=== PATIENT | female | born 1945 | race Caucasian/White ===

== ENCOUNTER 2022-05-08 11:15 | Outpatient (RCR) | payer MEDICARE, BC, SELFPAY | END 2022-07-15 12:28 | disposition home or self-care (01) | PROVIDERS: Visit Provider Physical Medicine & Rehabilitation | DX: R26.9 Unspecified abnormalities of gait and mobility (principal); Z51.89 Encounter for other specified aftercare | CPT/HCPCS: 97110; 97161 ==

== ENCOUNTER 2023-05-29 10:45 | Outpatient (RCR) | payer MEDICARE, BC, SELFPAY ==
--- NOTE | 2023-04-18 15:49 | PT.OPEX ---
PT [facility] [place] [facility] PT [facility] Eval Start: 04/18/23 13:32 Freq: Status: Active Protocol: Document 04/18/23 14:17 SHANTA (Rec: 04/18/23 15:45 SHANTA [id number]) E-signed By Dwayne Serrano PT Physical Therapy Outpatient Evaluation Insurance Information Insurance Name Medicare B,Blue Cross/Blue [employer] Medical Diagnosis Left hip bursitis Treating Diagnosis Left gluteal weakness Referring MD Ash Subjective Subjective Pt. reports onset of right lateral hip pain about 6 weeks ago without any noted injury. She had similar symptoms treated in therapy a decade or so ago. She has been having difficulty walking, lifting left leg, and sleeping at night. She saw Orthopedic surgeon and had X-rays. He thought that she had hip bursitis and recommended a cane for ambulation along with therapy. PMH includes; HTN, arthritis, chronic neck pain, and right shoulder RTSA. Pain Comments 6 Date of Last Physician Visit 04/14/23 Current Work Status Retired Preferred Name Diamond Objective Range of Motion Left hip: ER 40 degrees; IR 15 degrees; flexion 110 degrees Strength Left hip: abduction 2+/5 with pain; Palpation Pain with palpation to left lateral hip, with pain and hypertonus of left gluteus medius and piriformis Balance & Gait Pt. ambulates with moderate limp on left without assistive device. She ambultates with minimal limp on left side when using a cane. Assessment Assessment/Impression Objectively, pt. demonstrates; moderate limp on left side during ambulation without assistive device due to pain and gluteal medius weakness; functional bilat. hip ROM with 40 degrees of ER and 15 degrees of IR on left; pain with palpation to left lateral hip and gluteus medius; moderate weakness of left hip abductors and mild general gluteal weakness throughout; negative left hip joint testing for pain provocation; and general core deconditioning. She would benefit from skilled therapy working on progressive gluteal flexibility and strengthening activities. Primary Functional Limitations walking, lying on left side; lifting left leg; abducting left leg; sleeping; up steps Plan of Care Rehabilitation Potential Excellent Physical Therapy Goals 1. Pt. will be independent with HEP for self maintenance in 8 weeks. 2. Pt. will demonstrate improved left hip mobility and gluteal/core strength in 8 weeks. 3. Pt. will be able to walk without cane and sleep without pain in 8 weeks. Coordination/Communication With Referral Source Treatment Plan/Direct Interventions Joint Mobilization,Manual Therapy,Self-Care/Home Management,Therapeutic Exercises Frequency/Duration Weekly for 8 weeks. Patient Will Be Discharged From Therapy Independent w/HEP, Independently Progressing Evaluation Billing Complexity Low Certification Information Initial Certification Date 04/18/23 Ending Certification Date 07/12/23 Provider Signature Shows Agreement With POC & Medical Necessity Physician Signature & Date Requested Please Sign/Date Here Physician Comment/Change : Physician NPI Number #
== END 2023-07-11 08:46 | disposition home or self-care (01) ==
PROVIDERS: PCP Student in an Organized Health Care Education/Training Program; Visit Provider Orthopaedic Surgery
DX: M70.72 Other bursitis of hip, left hip (principal); M25.552 Pain in left hip; M62.81 Muscle weakness (generalized); Z51.89 Encounter for other specified aftercare
CPT/HCPCS: 97110; 97140; 97161

== ENCOUNTER 2023-06-02 15:13 | Emergency (ER) | payer MEDICARE, BC, SELFPAY ==
[2023-06-02 15:36] VITALS: BP 163/82; PULSE 98; RESP 16; TEMP 37; O2SAT 96; BMI 34.4
--- NOTE | 2023-06-02 16:06 | ED_ITS ---
HPI - General Adult General Time Seen by Provider: 16:06 Date Seen: 06/02/23 Chief complaint: Extremity Pain/Injury, Lower Stated complaint: L foot / back pain Time Seen by Provider: 06/02/23 15:44 Source: patient, family and RN notes reviewed Mode of arrival: wheelchair Limitations: no limitations History of Present Illness HPI narrative: This 77-year-old female is coming in with complaints of left foot pain and swelling. It awoke her around 2:30 a.m. last night. She tried some tramadol last night. She has tramadol and Flexeril for chronic neck pain. It did not help. A while ago she took some Excedrin. She states she has not eaten anything today. She can walk on the ball of the foot but cannot bear weight down into the midfoot or toes without excruciating pain. There has been no trauma. She has had no fevers or chills. She has been working with physical therapy for weeks now on left hip and groin pain, thought to be left hip bursitis. They relate to me if it was not improving in this time frame that they were to be getting an MRI. I did review with them at this point that we will not be able to get emergent MRI of her hip, that is something that is going to need to be followed up outpatient and is not in the acute need of her visit today. I tried to be very nice in explaining this but that we do not have a prior authorization process here and this is not her emergent need today. She does state last night she is getting some sharp low back pain. When we were talking about her left foot and no trauma, did recommend that we still consider x-rays, we occasionally can see some changes on the x-rays that leave this to diagnosis and there is always the possibility of a nontraumatic fracture. Patient brought up that if she was going to get x-ray she really thought it should be her low back. Given that she did have some acute pain last night, I did agree to do low back x-rays. Her primary complaint for being seen is left foot pain and swelling. She states she had an issue of the left foot being swollen at [place] time, was not here and was not evaluated. They note she was in a wheelchair for about 3 days unable to bear weight. He does not carry a history pre of gout or pseudogout. She does have known underlying arthritis. Her medications are reviewed, I do see hydrochlorothiazide in the list. She has not had any history of DVT, no current respiratory symptoms. They note that she has had a stent placed in the artery in the left groin. Related Data Home Medications ?Medication ?Instructions ?Recorded ?Confirmed cyclobenzaprine 10 mg tablet 10 mg PO TID 01/30/23 12/15/23 hydrochlorothiazide 50 mg tablet 50 mg PO Q OTHER DAY 01/30/23 12/15/23 omeprazole 20 mg capsule,delayed 20 mg PO QDAY 01/30/23 12/15/23 release tramadol 50 mg tablet 50 mg PO QDAY 01/30/23 12/15/23 atorvastatin 40 mg tablet 40 mg PO DAILY 04/14/23 12/15/23 estradiol 0.01% (0.1 mg/gram) 1 g vaginal 04/14/23 12/15/23 vaginal cream levothyroxine 150 mcg tablet 150 mcg PO DAILY 04/14/23 12/15/23 losartan 50 mg tablet 50 mg PO BID 04/14/23 12/15/23 allopurinol 100 mg tablet 50 mg PO .QOD gout 06/18/23 12/15/23 carvedilol 25 mg tablet 25 mg PO BID 07/30/23 12/15/23 amlodipine 5 mg tablet 5 mg PO QDAY 10/15/23 12/15/23 oxycodone 5 mg tablet 5 mg PO Q6H PRN 12/15/23 12/15/23 Allergies Allergy/AdvReac Type Severity Reaction Status Date / Time cinnamon Allergy Unknown Verified 12/15/23 12:06 house dust Allergy Verified 12/15/23 12:06 Latex, Natural Rubber Allergy Verified 12/15/23 12:06 lisinopril Allergy Cough Verified 12/15/23 12:06 Penicillins Allergy Verified 12/15/23 12:06 titanium AdvReac infection Verified 12/15/23 12:06 Review of Systems Status of ROS: Reports: 6 or more systems reviewed and unremarkable except as noted in History and below [facility] Medical History GERD (gastroesophageal reflux disease) ?K21.9 - Gastro-esophageal reflux disease without esophagitis (ICD-10) IBS (irritable bowel syndrome) ?K58.9 - Irritable bowel syndrome without diarrhea (ICD-10) Hypertension ?I10 - Essential (primary) hypertension (ICD-10) CAD (coronary artery disease) ?I25.10 - Atherosclerotic heart disease of [place] coronary artery without angina pectoris (ICD-10) Surgical History Status post hip surgery (06/26/23) ?Z98.890 - Other specified postprocedural states (ICD-10) H/O cataract extraction ?Z98.49 - Cataract extraction status, unspecified eye (ICD-10) History of reverse total replacement of right shoulder joint (~2017) ?Z98.890 - Other specified postprocedural states (ICD-10) History of removal of retained hardware (1991) ?Z98.890 - Other specified postprocedural states (ICD-10) History of open reduction and internal fixation (ORIF) procedure (1987) ?Z98.890 - Other specified postprocedural states (ICD-10) History of hysterectomy ?Z90.710 - Acquired absence of both cervix and uterus (ICD-10) Hx of cholecystectomy ?Z90.49 - Acquired absence of other specified parts of digestive tract (ICD- 10) Hx of appendectomy ?Z90.49 - Acquired absence of other specified parts of digestive tract (ICD- 10) Family History Mother DVT (deep venous thrombosis) Social History Smoking Status: Former smoker What tobacco products do you use: cigarettes Smoking quit date/years: >15 years ago Do you use any of these nicotine containing products: None Second hand tobacco smoke exposure: No How often do you have a drink containing alcohol: never How often do you have six or more drinks on one occasion: Never AUDIT-C Alcohol total score: 0 Non-prescribed substance use: denies use service: No Exam Const: Vital Signs, click to edit/add: Vital Signs - 24 hr 06/02/23 15:36 06/02/23 17:45 06/02/23 18:29 Temperature 98.6 F Pulse Rate [Pulse Oximeter] 98 82 Respiratory Rate 16 18 Blood Pressure [Ri ght Upper Arm] 163/82 H 148/81 H Pulse Oximetry 96 97 Oxygen Delivery Me thod Room Air Room Air Very pleasant 77-year-old female lying in the bed in exam room to, 2 daughters are present. She is alert, interactive, no apparent distress. Sclera clear, conjugate gaze, able to speak in complete sentences. Is able to sit up, lungs are clear, good air entry, no increased work of breathing. CV regular rate and rhythm, no murmur, normal S1 and S2. Abdomen is soft, no rebound or guarding, no organomegaly. The left foot definitely is swollen, see edema over the dorsum of the foot. There is a little bit more warmth to it than the right but no significant erythema. She is tender when I palpate inferiorly in the soft tissue below the lateral malleolus, medial side is completely nontender. Ankle mortise is nontender. She can not planes of pain when I get down over the dorsum of the foot by the metatarsophalangeal joints. There is general pain over these. The edema seems to be more so distally in the foot. She has good pulses, normal cap refill. In comparison her right foot actually feels cooler than the left. She has normal sensation of both. Documenting provider has reviewed patient's vital signs: yes Course Course ED Course: We will certainly consider thromboembolic disease, will get an ultrasound of this left lower extremity to rule out DVT. Have reviewed with them that I am not concerned about arterial occlusion at all with her presentation. This was actually warmer than the right. I do think that inflammatory arthropathy such as gout and pseudogout need to be considered. This coupled with a history what happened at [place] does make me think of an inflammatory arthropathy. I see no evidence of infectious etiology here. We will get a full complement of labs. She was stating she was having sharp back pain and is requesting a back x-ray, I will order lumbar films for her. She states she has not had any imaging done. Reviewed with her that I do not think the foot swelling has anything to do with back issues or the hip issues that she has been having but will keep this in consideration. Again, have reviewed the rationale for why we cannot do MRI of her left hip here today. Reevaluation(s) Time of Reevaluation #1: 17:53 Reevaluation #1: Patient requesting something further for pain management. Per nursing, they did question whether she has tolerated oxycodone/Percocet. It sounds as if she has in the past. Ordered a 1000 mg of acetaminophen and 5 mg oral oxycodone. Awaiting labs and imaging results at this time. Time of Reevaluation #2: 19:46 Reevaluation #2: Have reviewed with patient and her daughters the degenerative changes of her lumbar spine. The x-ray of her foot and ankle are normal, no DVT an ultrasound. On her labs, did review the creatinine of 1.2 with the creatinine clearance of just over 30 as they had asked about that. We did review that she has diminished creatinine clearance which would not be unexpected at age 77. There is nothing to do with this tonight, no acute changes or concerns with this. Her uric acid is normal but does not effectively rule out gout. I think her foot does suggest a inflammatory process. Oxycodone did help. We also gave her some Tylenol. We discussed having some oxycodone to help her sleep at night, Tylenol scheduled and then she can use her tramadol during the day. We will initiate some low-dose prednisone as an anti-inflammatory. We did discuss the mildly low potassium, daughters note that is been low before. Will have her try increasing potassium through dietary methods, follow up in clinic within the next 1-2 weeks for recheck. Reviewed signs and symptoms for return of this foot or other concerns. Will give medications from [facility], 8 tablets of oxycodone will be provided and prednisone. Vital Signs Vital signs: Initial Vital Signs Temperature 98.6 F 06/02/23 15:36 Temperature Source Oral 06/02/23 15:36 Pulse Rate 98 06/02/23 15:36 Pulse Rhythm Regular 06/02/23 15:36 Pulse Strength 3+ Normal 06/02/23 15:36 Respiratory Rate 16 06/02/23 15:36 Blood Pressure 163/82 H 06/02/23 15:36 Blood Pressure Mean 109 H 06/02/23 15:36 Blood Pressure Position Sitting 06/02/23 15:36 Pulse Oximetry 96 06/02/23 15:36 Oxygen Delivery Method Room Air 06/02/23 15:36 Vital Signs Temperature 98.6 F 06/02/23 15:36 Pulse Rate 98 06/02/23 15:36 Respiratory Rate 16 06/02/23 15:36 Blood Pressure 163/82 H 06/02/23 15:36 Pulse Oximetry 96 06/02/23 15:36 Oxygen Delivery Method Room Air 06/02/23 15:36 Temperature 98.6 F 06/02/23 15:36 Pulse Rate 81 06/02/23 20:17 Respiratory Rate 18 06/02/23 20:17 Blood Pressure 146/87 H 06/02/23 20:17 Pulse Oximetry 95 06/02/23 20:17 Oxygen Delivery Method Room Air 06/02/23 20:17 Medical Decision Making Lab Data Lab results reviewed: Yes I reviewed the patient's lab results Labs: Lab Results 06/02/23 Range/Units 16:36 WBC 9.15 (4.50-11.00) K/uL RBC 3.70 L (4.00-5.20) m/uL Hgb 11.3 L (12.0-16.0) gm/dL Hct 33.7 (33.0-51.0) % MCV 91 (80-100) fL MCH 31 (26-34) pg MCHC 34 (32-36) gm/dL RDW Coeff of Liliana 12.5 (11.5-15.5) % Plt Count 153 (140-440) K/uL Neut % (Auto) 72.6 H (42.0-72.0) % Lymph % (Auto) 16.3 L (20-44) % Montgomery % (Auto) 10.5 (0.0-11.0) % Eos % (Auto) 0.2 (0.0-7.0) % Baso % (Auto) 0.2 (0.0-3.0) % Neut # (Auto) 6.60 (1.7-7.0) K/uL Lymph # (Auto) 1.50 (0.90-2.90) K/uL Montgomery # (Auto) 1.00 H (0.00-0.90) K/UL Eos # (Auto) 0.02 (0.00-0.50) K/uL Baso # (Auto) 0.02 (0.00-0.30) K/uL Abs Immat Gran (auto) 0.02 (0.00-0.30) K/uL Imm/Tot Granulo (auto) 0.2 % ESR 23 H (2-20) mm/hr D-Dimer Quant (PE/DVT) 0.94 H (0.00-0.50) ug/ml Sodium 138 (135-149) mmol/L Potassium 3.1 L (3.6-5.1) mmol/L Chloride 99 (96-114) mmol/L Carbon Dioxide 30 (20-32) mmol/L Anion Gap 9 (7-15) mEq/L BUN 20 (7-30) mg/dL Creatinine 1.2 (0.5-1.5) mg/dL Estimated Creat Clear 31.45 Estimated GFR 46 ml/min Glucose 104 (60-115) mg/dL Uric Acid 7.2 (2.2-8.4) mg/dL Calcium 8.5 (8.4-10.6) mg/dL Total Bilirubin 0.9 (0.1-1.5) mg/dL AST 36 H (12-35) U/L ALT 29 (4-35) U/L Alkaline Phosphatase 73 (40-150) U/L C-Reactive Protein 0.9 (0.5-1.0) mg/dL Total Protein 7.3 (6.0-8.3) g/dL Albumin 4.3 (3.3-5.0) g/dL Imaging Data Venous US: Attestation: I have reviewed the pertinent imaging results. Radiologist's impression: Patient: CARLOS OZUNA Facility:?[facility] Patient ID:?[id number] Site Patient ID:?[id number]. Site :?1945 Study:?US Extremity Left DVT-06/02/2023 5:11:32 PM Ordering Physician:Nae Stevens Final Report: INDICATION: Leg pain and swelling. TECHNIQUE: Ultrasound venous duplex lower left extremity. Compression venous exam was performed using miles-scale, color Doppler, and spectral Doppler analysis. COMPARISON: None. FINDINGS: Deep veins: Sonographic imaging demonstrates the left common femoral, deep femoral, superficial femoral, popliteal, posterior tibial and the contralateral right common femoral veins to be fully compressible with normal color Doppler blood flow. Superficial veins: Greater saphenous vein is fully compressible. No popliteal cyst. IMPRESSION: No DVT in the left lower extremity. Dictated by Marlen Becker MD @ 06/02/2023 7:02:46 PM (Electronic Signature) XR left foot: Attestation: I have reviewed the pertinent imaging results. Radiologist's impression: Patient: CARLOS OZUNA Facility:?[facility] Patient ID:?[id number] Site Patient ID:?[id number]. Site :?1945 Study:?XRay Extremity Left FOOT 3V-06/02/2023 5:40:16 PM Ordering Physician:Nae Stevens Final Report: Indication: Pain, no trauma. Technique: Left foot, 3 views. Comparison: None. Findings/Impression: Bones: Alignment is normal. No displaced fractures or bone lesions. Joint spaces: Unremarkable. Soft tissues: Unremarkable. Dictated by Alex Graham MD @ 06/02/2023 7:22:13 PM (Electronic Signature) XR lumbar spine: Attestation: I have reviewed the pertinent imaging results. Radiologist's impression: Patient: CARLOS OZUNA Facility:?[facility] Patient ID:?[id number] Site Patient ID:?[id number]. Site :?1945 Study:?XRay Spine Lumbar 3v-06/02/2023 5:39:44 PM Ordering Physician:Nae Stevens Final Report: INDICATION: Low-back. TECHNIQUE: Lumbar spine 3 view. COMPARISON: None. FINDINGS: Bones: Dextroscoliotic curvature. No fractures or significant bone lesions. Joints: Multilevel degenerative disc disease and facet arthropathy most pronounced at L4-L5 and L5-S1. Soft tissues: Vascular stent. Dictated by Alex Graham MD @ 06/02/2023 7:17:35 PM (Electronic Signature) XR left ankle: Attestation: I have reviewed the pertinent imaging results. Radiologist's impression: Patient: CARLOS OZUNA Facility:?[facility] Patient ID:?[id number] Site Patient ID:?[id number]. Site :?1945 Study:?XRay Extremity Right ANKLE 2V-06/02/2023 5:41:03 PM Ordering Physician:Nae Stevens Final Report: Indication: Pain. No trauma. Technique: Left ankle, 3 views. Comparison: None. Findings/Impression: Bones: Alignment is normal. No displaced fractures or bone lesions. Joint spaces: Unremarkable. Soft tissues: Unremarkable. Dictated by Alex Graham MD @ 06/02/2023 7:20:18 PM (Electronic Signature) Critical Care Time Critical Care Time Critical Care Time: No Discharge Plan Discharge Clinical Impression: Degenerative joint disease (DJD) of lumbar spine, Acute pain of left foot, Hypokalemia Patient Disposition: Home, Self-Care Condition: Stable Instructions: Low Purine Diet (ED), Potassium Content of Foods List (ED), Gout (ED), Hypokalemia (ED) Additional Instructions: I do believe your left foot pain could be from an inflammatory condition, possibly gout. We will treat with an anti-inflammatory prednisone, will have you do 20 mg daily for 5-7 days. If your completely better on day 5, can stop. If you have lingering pain, would recommend a 7 day course. Take the prednisone with food to protect her stomach. Use Tylenol 1000 mg 3 times a day baseline for pain. You can use her tramadol during the day, I have given a small amount of oxycodone to be used at night to help you sleep. Can use your wheelchair at home or other gait aids as needed for pain-free ambulation. Try to increase potassium in your diet, review the handout. You are going to need to follow-up with your primary care provider, potassium should be rechecked within 1-2 weeks. Can review your back issues, review the foot pain and make sure they know that you had another episode at [place]. If at any point your pain is uncontrolled, have worsening symptoms, develop a fever or other concerns, do recommend re-evaluation. Would recommend trying ice on this foot,stop if it makes your symptoms worse. Activity Level: Activity as Tolerated Prescriptions: No Action levothyroxine 150 mcg tablet 150 mcg PO DAILY atorvastatin 40 mg tablet 40 mg PO DAILY estradiol 0.01 % (0.1 mg/gram) cream 1 g vaginal allopurinol 100 mg tablet 50 mg PO .QOD Rx Instructions: Every Friday, Friday, Fridays carvedilol 25 mg tablet 25 mg PO BID oxycodone 5 mg tablet 5 mg PO Q6H PRN amlodipine 5 mg tablet 5 mg PO QDAY cyclobenzaprine 10 mg tablet 10 mg PO TID hydrochlorothiazide 50 mg tablet 50 mg PO Q OTHER DAY omeprazole 20 mg capsule,delayed release(DR/EC) 20 mg PO QDAY tramadol 50 mg tablet 50 mg PO QDAY losartan 50 mg tablet 50 mg PO BID Follow Up/Referrals: Cindi Smiley PA-C [Primary Care Provider] - Stand Alone Forms: [facility] Info Instructions
--- NOTE | 2023-06-02 16:20 | CRLHL7_ITS ---
For Patients: As a result of the Cures Act, medical imaging exams and procedure reports are released immediately into your electronic medical record. You may view this report before your referring provider. If you have questions, please contact your health care provider. INDICATION: Low-back. TECHNIQUE: Lumbar spine 3 view. COMPARISON: None. FINDINGS: Bones: Dextroscoliotic curvature. No fractures or significant bone lesions. Joints: Multilevel degenerative disc disease and facet arthropathy most pronounced at L4-L5 and L5-S1. Soft tissues: Vascular stent. Dictated by Alex Graham MD @ 06/02/2023 7:17:35 PM (Electronically Signed)
--- NOTE | 2023-06-02 16:20 | CRLHL7_ITS ---
For Patients: As a result of the Cures Act, medical imaging exams and procedure reports are released immediately into your electronic medical record. You may view this report before your referring provider. If you have questions, please contact your health care provider. Indication: Pain, no trauma. Technique: Left foot, 3 views. Comparison: None. Findings/Impression: Bones: Alignment is normal. No displaced fractures or bone lesions. Joint spaces: Unremarkable. Soft tissues: Unremarkable. Dictated by Alex Graham MD @ 06/02/2023 7:22:13 PM (Electronically Signed)
[2023-06-02] MEDS: TRAMADOL HCL 50 MG TABLET PO (16:30)
--- NOTE | 2023-06-02 16:30 | CRLHL7_ITS ---
For Patients: As a result of the Century Cures Act, medical imaging exams and procedure reports are released immediately into your electronic medical record. You may view this report before your referring provider. If you have questions, please contact your health care provider. INDICATION: Leg pain and swelling. TECHNIQUE: Ultrasound venous duplex lower left extremity. Compression venous exam was performed using miles-scale, color Doppler, and spectral Doppler analysis. COMPARISON: None. FINDINGS: Deep veins: Sonographic imaging demonstrates the left common femoral, deep femoral, superficial femoral, popliteal, posterior tibial and the contralateral right common femoral veins to be fully compressible with normal color Doppler blood flow. Superficial veins: Greater saphenous vein is fully compressible. No popliteal cyst. IMPRESSION: No DVT in the left lower extremity. Dictated by Marlen Becker MD @ 06/02/2023 7:02:46 PM (Electronically Signed)
[2023-06-02 16:56] LABS: Basophils Absolute Auto 0.02 K/uL (0.00-0.30); Basophils Percent Auto 0.2 % (0.0-3.0); Eosinophils Absolute Auto 0.02 K/uL (0.00-0.50); Eosinophils Percent Auto 0.2 % (0.0-7.0); Hematocrit 33.7 % (33.0-51.0); Hemoglobin* 11.3 gm/dL (12.0-16.0); Immature Granulocytes Abs Auto 0.02 K/uL (0.00-0.30); Immature Granulocytes Pct Auto 0.2 %; Lymphocytes Percent Auto 16.3 % (20-44); Mean Corpuscular HGB Conc 34 gm/dL (32-36); Mean Corpuscular Hemoglobin 31 pg (26-34); Mean Corpuscular Volume 91 fL (80-100); Monocytes Percent Auto 10.5 % (0.0-11.0); Neutrophils Percent Auto 72.6 % (42.0-72.0); Platelet Count* 153 K/uL (140-440); RDW Coefficient of Variation % 12.5 % (11.5-15.5); White Blood Count* 9.15 K/uL (4.50-11.00)
[2023-06-02 17:07] LABS: D Dimer Quantitative* 0.94 ug/ml (0.00-0.50)
[2023-06-02 17:11] LABS: Slide Review Reflex No
--- NOTE | 2023-06-02 17:23 | CRLHL7_ITS ---
For Patients: As a result of the Cures Act, medical imaging exams and procedure reports are released immediately into your electronic medical record. You may view this report before your referring provider. If you have questions, please contact your health care provider. Indication: Pain. No trauma. Technique: Left ankle, 3 views. Comparison: None. Findings/Impression: Bones: Alignment is normal. No displaced fractures or bone lesions. Joint spaces: Unremarkable. Soft tissues: Unremarkable. Dictated by Alex Graham MD @ 06/02/2023 7:20:18 PM (Electronically Signed)
[2023-06-02 17:45] VITALS: PULSE 82; RESP 18; O2SAT 97
[2023-06-02] MEDS: OXYCODONE 5 MG TABLET PO (18:00)
[2023-06-02] MEDS: ACETAMINOPHEN 500 MG TABLET 1000 MG PO (18:00)
[2023-06-02 18:29] VITALS: BP 148/81
[2023-06-02 18:35] LABS: Anion Gap 9 mEq/L (7-15); Blood Urea Nitrogen* 20 mg/dL (7-30); Calcium* 8.5 mg/dL (8.4-10.6); Carbon Dioxide* 30 mmol/L (20-32); Chloride* 99 mmol/L (96-114); Creatinine* 1.2 mg/dL (0.5-1.5); Est. Creatinine Clearance* 31.45; Estimated Glomerular Filt Rate 46 ml/min; Potassium* 3.1 mmol/L (3.6-5.1); Sodium* 138 mmol/L (135-149)
[2023-06-02 18:36] LABS: Glucose* 104 mg/dL (60-115); Total Protein* 7.3 g/dL (6.0-8.3)
[2023-06-02 18:37] LABS: Alanine Aminotransferase* 29 U/L (4-35); Albumin* 4.3 g/dL (3.3-5.0); Alkaline Phosphatase* 73 U/L (40-150); Aspartate Amino Transferase* 36 U/L (12-35); Bilirubin Total* 0.9 mg/dL (0.1-1.5); C Reactive Protein* 0.9 mg/dL (0.5-1.0); Uric Acid* 7.2 mg/dL (2.2-8.4)
[2023-06-02 19:13] LABS: Erythrocyte SedimentationRate* 23 mm/hr (2-20)
[2023-06-02 20:17] VITALS: BP 146/87; PULSE 81; RESP 18; O2SAT 95
== END 2023-06-02 20:23 | disposition home or self-care (01) ==
PROVIDERS: Emergency Provider Family Medicine; PCP Student in an Organized Health Care Education/Training Program
DX: M47.9 Spondylosis, unspecified (principal); M79.672 Pain in left foot; E87.6 Hypokalemia
CPT/HCPCS: 36415; 72100; 73600; 73630; 80053; 84550; 85025; 85379; 85651; 86140; 93971; 95992; 99284; 99285; A9270

== ENCOUNTER 2023-06-26 06:29 | Outpatient (CLI) | payer MEDICARE, BC, SELFPAY ==
[2023-06-26 06:58] VITALS: BP 150/88; PULSE 82; RESP 16; O2SAT 97
[2023-06-26 07:39] VITALS: BP 151/91; PULSE 77; RESP 16; O2SAT 97
--- NOTE | 2023-06-26 08:27 | P.ORPRC_ITS ---
Procedure Note Date of procedure: 06/26/23 Procedure: PREOPERATIVE DIAGNOSIS: Left hip abductor tendinopathy/greater trochanteric bursitis POSTOPERATIVE DIAGNOSIS: Left hip abductor tendinopathy/greater trochanteric bursitis NAME OF OPERATION: Percutaneous tenotomy SURGEON: Stephan Ash MD FABRICATOR ARTIFICIAL BREAST: Johana Daniel PA-C ANESTHESIA: Local ESTIMATED BLOOD LOSS: 2 mL. COMPLICATIONS: None. SPECIMENS: None. DRAINS: None. PREOPERATIVE ANTIBIOTICS: None INDICATIONS: The patient is a 77-year-old with a history of left hip pain secondary to the above diagnoses. Despite appropriate non operative management, they continue to have symptoms. Operative intervention was recommended. The risks, benefits and expected outcomes were discussed in detail. These included but were not limited to: Infection, bleeding, injury to blood vessel or nerve, venous thromboembolism. All questions were answered to their satisfaction. PROCEDURE: The patient was placed in the lateral decubitus position. The left hip was imaged in the long and short axes with the ultrasound transducer. Normal acoustic landmarks were identified. We then sterilely prepped and draped the skin, and used a sterile probe cover with sterile gel. Local anesthesia was established with 10 mL of a solution containing 2 % lidocaine without epinephrine, 0.5% Marcaine without epinephrine and sodium bicarbonate. An 11 blade was used to incise the skin. The Tenex TX 2 micro tip was used to treat the abductor tendon for a total of 4 minutes and 51 seconds. The incision was Steri-Stripped closed. A dry dressing was applied. Sponge and needle counts were correct x2. The patient tolerated the procedure well. There were no apparent complications. They were discharged to home in satisfactory condition. PLAN: The patient may weightbear as tolerates. Tylenol can be used for pain/discomfort. They may ramp up activity as the hip will allow. They will follow up in the office in 6 weeks to assess their progress.
== END 2023-06-26 07:44 | disposition home or self-care (01) ==
LOC: US 06:30
PROVIDERS: PCP Student in an Organized Health Care Education/Training Program; Visit Provider Orthopaedic Surgery
DX: M70.62 Trochanteric bursitis, left hip (principal)
CPT/HCPCS: 27006; 76942; J0665

== ENCOUNTER 2024-02-19 10:00 | Outpatient (RCR) | payer MEDICARE, BC, SELFPAY ==
--- NOTE | 2023-10-16 16:30 | PT.OPEX ---
PT [place] Outpatient Eval PT [facility] Outpatient Eval Start: 10/16/23 10:46 Freq: Status: Active Protocol: Document 10/16/23 10:47 JAIDEN (Rec: 10/16/23 11:05 JAIDEN [id number]) E-signed By Genesis Blair DPT Physical Therapy Outpatient Evaluation Insurance Information Recert Due Date 01/14/24 Insurance Name Medicare B,[employer] Medical Diagnosis L hip bursitis. hx L hip percutaneous tenotomy 06/26/23 Treating Diagnosis s/p L hip percutaneous tenotomy 06/26/23 with ongoing L hip pain, impaired L hip/LE mobility/strength, core/hip/ glut/LE weakness, limping/ antalgic gait, limited tolerance for extended standing/walking/stairs Subjective Subjective Patient reports chronic L hip/ buttock pain since last April . Gradual onset. She denies any injury, trauma, falls. Patient reports having PT last May but without much improvement. Due to her ongoing L hip/buttock pain, patient had L hip percutaneous tenotomy 06/26/23. Patient reports some improvement after the procedure but states her L hip/buttock pain is easily flared up again with any activity. Pain range 3-7/10. She reports increased pain with lifting or moving her L leg. States she continues to limp with walking. She was using a cane on occasion last fall but hasn't been using a cane lately. Patient reports difficulty with stairs so she is using the chair lift she has at home to avoid the stairs. She uses pain meds as needed, heating pad regularly . She hasn't been using ice. Sleep is interrupted. She cannot lie on her L hip due to pain. Date of Last Physician Visit 10/15/23 Current Work Status Retired Precautions Treatment Precautions/Contraindications hx L hip percutaneous tenotomy 06/26/23 Assessment Assessment/Impression Patient is a 77 year old female s/p L hip percutaneous tenotomy 08/26/23 with ongoing L hip pain, impaired L hip/LE mobility/strength, core/hip/ glut/LE weakness, limping/ antalgic gait, limited tolerance for extended standing/walking/stairs. Pain range 3-7/10. Patient is using pain meds as needed, heating pad regularly to help with pain management. L hip AROM is limited by pain, weakness. L hip P/AAROM is WFL. Patient with significant L hip abd weakness with 3/5 strength. Patient also with core/hip/glut/LE weakness. Patient with increased effort with transfers sit/stand, sit/ supine this session. She reports increased pain and weakness with movement of L hip/LE for exercises in supine . Patient is tight, tender with palpation L lateral hip and L buttock region. Gait is slow, limping, antalgic without an AD. Patient has a cane she can use but has not been using it. Recommend she use her cane for amb for the next couple of weeks. Able to initiate some exercises this session. Tolerated well. Patient would benefit from skilled PT for pain/sx management, improved L hip ROM , core/hip/glut/LE strengthening, improved gait, and establishment of HEP. Plan of Care Rehabilitation Potential Good Physical Therapy Goals 1. Decrease L hip/buttock pain to less than/equal to 3/ 10 with daily activities and with the progression of PT activities over the next 4-6 weeks. 2. Improve L hip ROM to WFL and pain free over the next 4- 6 weeks for improved gait mechanics, return to transfers with ease, and return to stair negotiation without flare up of pain. 3. Improve hip/glut/LE/core strength over the next 10-12 weeks for return to transfers with ease, normal gait with/without AD as needed, and extended standing/walking/ stairs without flare up of pain. 4. Patient will be I with HEP within 12 weeks for progression toward above goals, ongoing self management of pain/sx, ongoing self improvements in L hip ROM/mobility/strength, and for return to daily activities/standing/walking without flare up of pain. Coordination/Communication With Referral Source Treatment Plan/Direct Interventions Gait Training,Manual Therapy, Therapeutic Exercises Frequency/Duration 1x/week Patient Will Be Discharged From Therapy Completion of LTG(s),Skills Plateau,Independent w/HEP, Independently Progressing Evaluation Billing Untimed Code Treatment Minutes 25 Complexity Moderate Certification Information Initial Certification Date 10/16/23 Ending Certification Date 01/14/24 Provider Signature Shows Agreement With POC & Medical Necessity Physician Signature & Date Requested Please Sign/Date Here Physician Comment/Change : Physician NPI Number #
--- NOTE | 2024-01-06 11:57 | PT.OP2DDNX ---
PT [place] Outpatient 2nd Diagnosis Daily Note PT [facility] Outpatient 2nd Diag Daily Note Start: 01/06/24 07:30 Freq: Status: Active Protocol: Document 01/06/24 09:28 SHANTA (Rec: 01/06/24 10:04 SHANTA [id number]) E-signed By Dwayne Serrano, PT PT [facility] 2nd Diagnosis Daily Note Visit Information Note Type 2nd Diagnosis Daily Note,Re- Evaluation Visit Number 1 Insurance Information Insurance Name Medicare B Medical Diagnosis Back Pain Treating Diagnosis Core weakness SIJD Left gluteal/hip weakness Referring MD Pike Subjective Subjective Pt. reports onset of LBP symptoms in May of 2024 when she was dealing with left side foot gout. She has been seen in therapy for left hip/ gluteal pain and weakness which has improved overall from therapy. She also had a hip tenotomy procedure. Her LBP is very low and central/left sided and is worst with sitting and standing. She is limited in her walking due to her LBP along with continued gluteal dysfunction. X-rays of lumbar spine show L4,5 and L5-S1 DDD with facet arthropathy. PMH includes HTN, back pain, left hip pain, and arthritis. Home Exercise Home Exercise Compliance Compliant Home Exercise Reviewed Yes Objective Other/Pertinent Objective LROM: flexion 80%; extension 50%; left SB 50% with pain; and right SB 75%. Positive slump on left for gluteal pain Positive SIJ compression for left side SIJ pain Significant pain with palpation to left SIJ and L5 facet core weakness Left hip abductor weakness with mild Trendelenburg gait pattern. Patient Instructed in Risks/Benefits Yes Therapeutic Exercise Therapeutic Exercise Minutes (minutes) 25 Therapeutic Exercise: To Restore Reviewed existing HEP given to Functional Status her for her left gluteal/hip dysfunction with instructions to continue with them. Initiated Spine Care program with; back extension machine 30# 2x10; standing hip hinges, supine PTs, supine bridges. Treatment Minutes Untimed Code Treatment Minutes 30 Timed Code Treatment Minutes 25 Total Treatment Time 55 Billing Units Therapeutic Exercise Units 2 Re-Evaluation Units 1 Assessment/Impression Assessment/Impression Objectively, pt. demonstrates; antalgic gait pattern on left side with Trendelenburg pattern due to left side pain and gluteal functional weakness; balance deficits; pain with lumbar left side bending and extension; positive slump for left gluteal ache; significant pain with palpation to left L5,S1 and left SIJ; positive SIJ compression test for pain provocation; left gluteus medius weakness; and core weakness/deconditioning. She would benefit from skilled therapy working on a progressive spine care strengthening program along with manual therapy. Plan of Care Physical Therapy Goals 1. Pt. will be independent with HEP for self maintenance in 8 weeks. 2. Pt. will demonstrate improved core strength and stability for ADL's in 8 weeks . 3. Pt. will be able to stand and sit for normal ADL's without increased pain in 8 weeks. Daily Plan of Care Comments See pt. 2 times a week for 6-8 weeks. Recertification Information Initial Certification Date 10/16/23 Most Recent Visit 01/06/24 Recertification Start Date 01/06/24 Recertification Due Date 04/05/24 Reasons to Continue Skilled Therapy Pt. comes to therapy today with new orders for Spine Care Program due to ongoing LBP issues. She has had significant improvement in therapy addressing her left hip pain/weakness symptoms along with a tenotomy procedure. Following assessment of lumbar spine today, she will benefit from skilled therapy working on progressive lumbar/core strengthening as she demonstrates a noted weakness in her lumbar/core strength with limited sitting and standing/walking abilities. Rehabilitation Potential Good for Goals Continued Plan of Care and Interventions See pt. 2 times a week for 6-8 weeks. Provider Signature Shows Agreement With POC & Medical Necessity Physician Comment/Change Comment or Changes Physician NPI Number #
== END 2024-05-14 08:24 | disposition home or self-care (01) ==
PROVIDERS: PCP Student in an Organized Health Care Education/Training Program; Visit Provider Orthopaedic Surgery
DX: Z98.890 Other specified postprocedural states (principal); M54.9 Dorsalgia, unspecified; Z51.89 Encounter for other specified aftercare
CPT/HCPCS: 97110; 97140; 97162; 97164

== ENCOUNTER 2024-04-22 15:18 | Outpatient (CLI) | payer MEDICARE, BC, SELFPAY ==
--- NOTE | 2024-04-22 15:30 | CRLHL7_ITS ---
For Patients: As a result of the Century Cures Act, medical imaging exams and procedure reports are released immediately into your electronic medical record. You may view this report before your referring provider. If you have questions, please contact your health care provider. EXAM: MRI OF THE LEFT HIP, WITHOUT CONTRAST CLINICAL INDICATION: Left hip pain. COMPARISON PLAIN FILMS: 04/14/2023. COMPARISON CROSS-SECTIONAL IMAGING STUDIES: None. TECHNICAL: Axial, sagittal and coronal PD FS small field of view images of the hip. Coronal T1, PD FS and axial T1 images of the pelvis. FINDINGS: LEFT HIP: Labrum: Diffuse fraying and degeneration. No paralabral cyst. Articular Cartilage: Moderate to full-thickness chondromalacia anteriorly in the acetabulum with a small subchondral cystic change. Mild chondral fissuring in the femoral head. Joint Space: No effusion, synovitis or loose body. Proximal Femoral Morphology: No significant osseous bump. Femoral head-neck offset is within normal limits. Acetabular Morphology: No focal or global retroversion. No significant overcoverage. RIGHT HIP: No joint effusion or subchondral changes. OSSEOUS STRUCTURES: No fracture, marrow edema or marrow replacement process. No evidence for avascular necrosis. MUSCULOTENDINOUS STRUCTURES AND BURSAE: Gluteus Minimus and Medius: No tendon tear or tendinopathy. Partial atrophy of the bilateral gluteus medius musculature. Bursae: No trochanteric or iliopsoas bursitis. Common Hamstrings: Mild tendinopathy of the common hamstring tendon origins bilaterally. Adductors and Flexors: Tendons and myotendinous junctions are intact. No muscle atrophy or edema. SOFT TISSUES: No subcutaneous edema, hematoma or fluid collection. OTHER JOINTS: Sacroiliac joints are maintained. Pubic symphysis is maintained. INTRAPELVIC CONTENTS: No mass, fluid collection or adenopathy. No inguinal hernia. Hysterectomy. NEUROVASCULAR STRUCTURES: No abnormality involving the visualized proximal femoral or proximal sciatic nerves. No aneurysmal dilation of the visualized distal aorta or iliac arterial circulation. IMPRESSION: 1. 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 2. Diffuse fraying and degeneration of the left labrum. 3. Partial atrophy of the bilateral gluteus medius musculature. 4. Mild tendinopathy of the common hamstring tendon origin bilaterally. Dictated by Mauro Sheriff MD @ 04/23/2024 10:09:26 AM (Electronically Signed)
== END 2024-04-22 15:19 | disposition home or self-care (01) ==
LOC: MRI 15:20
PROVIDERS: PCP Student in an Organized Health Care Education/Training Program; Visit Provider Family Medicine
DX: M25.552 Pain in left hip (principal); M94.252 Chondromalacia, left hip; M76.02 Gluteal tendinitis, left hip; M54.50 Low back pain, unspecified; M53.3 Sacrococcygeal disorders, not elsewhere classified
CPT/HCPCS: 73721

== ENCOUNTER 2024-08-03 13:35 | Outpatient (CLI) | payer MEDICARE, BC, SELFPAY | END 2024-08-03 13:36 | disposition home or self-care (01) | LOC: INJ CL 13:35 | PROVIDERS: PCP Student in an Organized Health Care Education/Training Program; Visit Provider Family Medicine | DX: M54.16 Radiculopathy, lumbar region (principal); M51.369 Other intervertebral disc degeneration, lumbar region without mention of lumbar back pain or lower extremity pain | CPT/HCPCS: 62323; J0702; Q9966 ==

== ENCOUNTER 2024-09-10 10:00 | Outpatient (RCR) | payer MEDICARE, BC, SELFPAY | END 2024-10-18 09:00 | disposition home or self-care (01) | PROVIDERS: PCP Student in an Organized Health Care Education/Training Program; Visit Provider Family Medicine | DX: M24.152 Other articular cartilage disorders, left hip (principal); M76.02 Gluteal tendinitis, left hip; M70.62 Trochanteric bursitis, left hip; M54.16 Radiculopathy, lumbar region; M48.061 Spinal stenosis, lumbar region without neurogenic claudication; M10.9 Gout, unspecified; M11.20 Other chondrocalcinosis, unspecified site; Z51.89 Encounter for other specified aftercare | CPT/HCPCS: 97110; 97140; 97162 ==

== ENCOUNTER 2025-02-21 11:03 | Day surgery (SDC) | payer MEDICARE, BC, SELFPAY ==
[2025-02-21] VITALS (21 sets, daily range): BP systolic 101–152; BP diastolic 60–94; PULSE 61–84; RESP 14–18; TEMP 36.3–36.9; O2SAT 93–99; BMI 37.8
[2025-02-21] MEDS: LACTATED RINGERS 1000 ML 1,000 ML 100 ML IV ×2 (11:58→14:15)
[2025-02-21] MEDS: SODIUM CHLORIDE 0.9 % (FLUSH) 10 ML SYRINGE IVF (11:58)
[2025-02-21] MEDS: OXYCODONE (CR) 10 MG TAB.ER.12H PO (12:13)
[2025-02-21] MEDS: ACETAMINOPHEN 500 MG TABLET 1000 MG PO ×2 (12:13→18:08)
--- NOTE | 2025-02-21 12:15 | SUR.PREOP ---
TIME?OUT:?1216 PT/RN/MDA?VERIFICATION?OF?SURGICAL?SITE,?PROCEDURE,?AND?CONSENT OBTAINED?PRIOR?TO?INVASIVE?PROCEDURE.
[2025-02-21] MEDS: MIDAZOLAM HCL 1 MG/ML inj IVP (12:20)
[2025-02-21] MEDS: fentaNYL 100 MCG/2 ML inj IVP (12:20)
--- NOTE | 2025-02-21 12:50 | W.PM.H&PU_ITS ---
History & Physical Update History & Physical Update H&P Updates: She does report that some hardware had to be taken out of her ankle approximately 4 years after implantation. She relates this to metal sensitivity. However, she has no metal sensitivity when wearing earrings, braces, necklaces. In addition, she also had a right reverse shoulder arthroplasty placed at [facility]. She told him about possible metal sensitivity. They felt like these implants would do just fine. She has not had any tanya issues with this procedure. Therefore, today I do think that a total knee arthroplasty is reasonable and has a low risk for problematic issues regarding metal sensitivity.
[2025-02-21] MEDS: CEFAZOLIN 1 GM inj IVP (12:52)
[2025-02-21] MEDS: TRANEXAMIC ACID 100 MG/ML INJ 1000 MG IV (12:53)
--- NOTE | 2025-02-21 12:53 | CRLHL7_ITS ---
For Patients: As a result of the Cures Act, medical imaging exams and procedure reports are released immediately into your electronic medical record. You may view this report before your referring provider. If you have questions, please contact your health care provider. Indication: Post op right TKA Technique: Two views right knee Findings/Impression: Hardware from a right total knee arthroplasty is in satisfactory position. Bone alignment is normal. No sign of acute fracture. Postop changes are within normal limits. Dictated by Donovan Phoenix MD @ 02/22/2025 10:46:04 AM (Electronically Signed)
--- NOTE | 2025-02-21 12:54 | P.ANES_ITS ---
Anesthesia Charges Start Date/Time Anesthesia Start Date: 02/21/25 Anesthesia Start Time: 12:26 Stop Date/Time Anesthesia Stop Date: 02/21/25 Anesthesia Stop Time: 14:54 Summary Extremes of Age - Over 70 or under 1: EDITOR IN CHIEF NEWSPAPER Coding CPT Codes CPT Codes: ANESTH KNEE ARTHROPLASTY - 12154 ([id number]) P2 - PATIENT W/MILD SYST DISEASE, QK - NEUROLOGICAL SURGEON 2-4 CNCRNT ANES PROC, QX - EDITOR IN CHIEF NEWSPAPER SVC W/ MD MED DIRECTION Additional Codes: Summary - Extremes of Age - Over 70 or under 1: EDITOR IN CHIEF NEWSPAPER ([id number])
--- NOTE | 2025-02-21 12:54 | W.ANESCHARGE ---
Anesthesia Charges Start Date/Time Anesthesia Start Date: 02/21/25 Anesthesia Start Time: 12:26 Stop Date/Time Anesthesia Stop Date: 02/21/25 Anesthesia Stop Time: 14:54 Summary Extremes of Age - Over 70 or under 1: CANVAS WORKER APPRENTICE Coding CPT Codes CPT Codes: ANESTH KNEE ARTHROPLASTY - 57322 ([id number]) P2 - PATIENT W/MILD SYST DISEASE, QK - GENERAL UTILITY MAINTENANCE REPAIRER 2-4 CNCRNT ANES PROC, QX - CANVAS WORKER APPRENTICE SVC W/ MD MED DIRECTION Additional Codes: Summary - Extremes of Age - Over 70 or under 1: CANVAS WORKER APPRENTICE ([id number])
--- NOTE | 2025-02-21 14:00 | PM.ORPRC ---
Procedure Note Date of procedure: 02/21/25 Procedure: PREOPERATIVE DIAGNOSIS: 1. Right knee osteoarthritis, primary, severe POSTOPERATIVE DIAGNOSIS: 1. Right knee osteoarthritis, primary, severe PROCEDURE: 1. Right total knee arthroplasty - subvastus SURGEON: Fercho Min MD. USED BUILDING MATERIALS YARD WORKER: Ladonna Daniel PA-C - Of note, a skilled assistant product manager was critical for this case to aid in patient positioning, tissue retraction, limb manipulation/positioning, and closure. ANESTHESIA: Spinal anesthetic IMPLANTS: DePuy J&J all cemented TKA - Attune PS femur size 6 narrow Size 5 tibia 5 poly spacer 35mm patella TOURNIQUET: 90 min at 300 torr EBL: 50 ml COMPLICATIONS: None evident INDICATIONS: The patient is a pleasant 79-year-old female who has experienced severe right knee pain and difficulty bearing weight. Workup included x-rays which revealed severe osteoarthrosis in the knee. Given the deformity, the dysfunction, and the pain, as well as the failure of nonoperative management, recommendation was made for surgery. FINDINGS: Severe lateral compartment osteoarthritis and to a lesser degree patellofemoral and medial compartment. The lateral compartment showed delamination of the cartilage from the deep bone. This was seen very clearly when the distal femoral cut was made suggesting possibly an AVN component. Meniscus pathology was degenerative lateral greater than medial. Moderate effusion upon entering the joint. DESCRIPTION OF PROCEDURE: Following a thorough discussion of risks, benefits, and alternatives consent was obtained and the right knee was marked. The patient was brought to the operating room and placed supine on the operating table. Induction of anesthesia was undertaken. 2 g IV Ancef and 1 g tranexamic acid was administered within 1 hr of incision preoperatively. Proper time-out was performed identifying proper patient, site, procedure. The operative extremity was prepped and draped in the appropriate sterile fashion using ChloraPrep after the patient was positioned supine with all bony prominences well padded. A longitudinal, anterior, midline skin incision was made starting approximately 3cm proximal to the superior pole of the patella and advanced distal to the tibial tubercle. A subvastus approach was utilized. A medial subperiosteal sleeve was created with knife, davis elevator and curved osteotome. The retropatellar fatpad was resected and the synovium in the suprapatellar pouch excised to visualize the anterior femoral cortex. Femoral preparation was performed via an intramedullary guide. Step drill allowed access into the femoral canal. The distal cutting guide was placed with 6 ? of valgus and 10 mm cut on the distal femur. Femur was sized using a posterior referencing guide as well as trans epicondylar axis and Whitesides line for reference in 5 ? of external rotation. This found have a best fit with the sizing noted above. The 4 in 1 cutting block was then placed, and the distal femur shaped accordingly. The box cut was then created and the trial implant inserted to confirm appropriate fit. We turned our attention to the proximal tibia. Extramedullary guide was utilized for cutting with the goal of being 90 degree cut from the mechanical axis of the tibia in the varus/valgus plane utilizing tibial crest as the primary alignment. Initially a 4 mm resection was performed from the medial tibial plateau. Ultimately, balancing was achieved in both flexion and extension in both varus and valgus. The knee was able to achieve full extension as well comfortably. The patella was initially measured and found have a thickness of 23 mm. It was resected back to approximately 14 mm. It was sized to be a best fit with as noted above. This was drilled, trial placed. All trials were placed and found to have an excellent stability and balance. At this stage, trial implants were removed, the knee was thoroughly irrigated with normal saline, and the cement was mixed. After irrigation, the knee was thoroughly dried, and cement placed, with the real tibial and femoral implants placed along with the patella. Trial poly spacer was placed and confirmed to have excellent range of motion and full extension, and the real poly spacer opened and inserted. All extra cement was removed, and a 3 min Betadine soak performed. Finally, a final irrigation round with normal saline was performed. Closure performed with 0 Vicryl and #0 Stratafix for the quad tendon/retinaculum. 2-0 Vicryl for the subcutaneous and 4-0 Stratafix for subcuticular closure. Dressings were applied and the patient was awoken from anesthesia after the tourniquet deflated and transferred the PACU in stable condition. A skilled assistant product manager was critical for this case to aid in patient positioning, tissue retraction, bone exposure, limb manipulation/positioning, patient safety, and closure. PLAN: 1. Weight bear as tolerated operative extremity. 2. 23 hr perioperative antibiotics. 3. Ice. 4. PT/OT consults for ambulation assistance/mobility education. 5. Social work consult for discharge planning. 6. DVT prophylaxis with at SCDs and aspirin twice daily.
--- NOTE | 2025-02-21 14:10 | P.NB_ITS ---
Nerve Block Nerve Block Time Seen by Provider: 12:20 Date Seen: 02/21/25 Type of block requested by surgeon for post-operative analgesia: adductor canal Side: right Time out performed: Yes Verification of patient name: Yes Verification of date of : Yes Site marking: site marked Name of person performing procedure: Michael Continuous monitoring Was continuous monitoring of O2 sat, B/P, groundwater monitoring technician, recorded every 15 minutes?: Yes Procedure Checklist: sterile prep, needles and gloves Ultrasound guided. Images saved: Yes Medications given in 5ml increments after negative aspiration: Marcaine %: 0.25 mL: 15 Needle gauge: 20 Precedex (mcg): 25 Patient tolerated procedure well: Yes Block Charges Block Charge (with Pro Fee): Femoral Nerve Use of Ultrasound Machine for Block: Yes- US Guidance/pain block
--- NOTE | 2025-02-21 14:10 | P.NB_ITS ---
Nerve Block Nerve Block Time Seen by Provider: 12:20 Date Seen: 02/21/25 Type of block requested by surgeon for post-operative analgesia: geniculars Side: right Time out performed: Yes Verification of patient name: Yes Verification of date of : Yes Site marking: site marked Name of person performing procedure: Michael Continuous monitoring Was continuous monitoring of O2 sat, B/P, hod carrier, recorded every 15 minutes?: Yes Procedure Checklist: sterile prep, needles and gloves Ultrasound guided. Images saved: Yes Medications given in 5ml increments after negative aspiration: Marcaine %: 0.25 mL: 9 Needle gauge: 25 Patient tolerated procedure well: Yes Block Charges Block Charge (with Pro Fee): Genicular Nerve Block
--- NOTE | 2025-02-21 14:11 | P.ANES_ITS ---
Anesthesia Charges Start Date/Time Anesthesia Start Date: 02/21/25 Anesthesia Start Time: 12:26 Stop Date/Time Anesthesia Stop Date: 02/21/25 Anesthesia Stop Time: 14:54 Summary Extremes of Age - Over 70 or under 1: MDA Coding CPT Codes CPT Codes: ANESTH KNEE ARTHROPLASTY - 37878 ([id number]) P2 - PATIENT W/MILD SYST DISEASE, QK - INCLUSION PARAEDUCATOR 2-4 CNCRNT ANES PROC, QX - REAL ESTATE AGENCY LICENSEE SVC W/ MD MED DIRECTION Additional Codes: Summary - Extremes of Age - Over 70 or under 1: MDA ([id number])
--- NOTE | 2025-02-21 14:11 | W.ANESCHARGE ---
Anesthesia Charges Start Date/Time Anesthesia Start Date: 02/21/25 Anesthesia Start Time: 12:26 Stop Date/Time Anesthesia Stop Date: 02/21/25 Anesthesia Stop Time: 14:54 Summary Extremes of Age - Over 70 or under 1: MDA Coding CPT Codes CPT Codes: ANESTH KNEE ARTHROPLASTY - 76159 ([id number]) P2 - PATIENT W/MILD SYST DISEASE, QK - INSPECTOR AND TESTER 2-4 CNCRNT ANES PROC, QX - PRINT TRAFFIC MANAGER SVC W/ MD MED DIRECTION Additional Codes: Summary - Extremes of Age - Over 70 or under 1: MDA ([id number])
[2025-02-21] MEDS: HYDROmorphone 0.5 mg/0.5 ml inj IVP ×4 (15:49→23:58)
--- NOTE | 2025-02-21 16:04 | PM.IMCN1 ---
Date of Consult Patient: Antoinette Patient Consult date: 02/21/25 Requesting Physician: Orthopedics Primary Care Provider: Cindi Smiley PA-C Consult Narrative Reason for consult: HTN, hyperlipidemia Narrative: Diamond Tyson is a 79 year old female with a h/o HTN, hyperlipidemia, asthma, CKD stage 3, obesity, and hypothyroidism who underwent an elective right total knee arthroplasty today by Dr. Min. She is doing well postoperatively. She is pleasantly surprised that she doesn't have any nausea or vomiting like she used to with anesthesia. She does notice some pain starting in the front of her right knee for which her nurse brought in some pain medication. She complains of history of irritable bowel syndrome with intermittent constipation and diarrhea. This past week she has been having diarrhea, and she had a loose stool this morning as well. She denies any fevers or chills. Review of Systems Status of ROS: Reports: 6 or more systems reviewed and unremarkable except as noted in History and below [facility] Medical History (Updated 02/21/25 @ 16:20 by Leigh Ann Boyd MD) Morbid obesity ?E66.01 - Morbid (severe) obesity due to excess calories (ICD-10) Chronic low back pain ?M54.50 - Low back pain, unspecified (ICD-10) ?G89.29 - Other chronic pain (ICD-10) Lumbar degenerative disc disease ?M51.36 - Other intervertebral disc degeneration, lumbar region (ICD-10) Chronic kidney disease ?N18.9 - Chronic kidney disease, unspecified (ICD-10) Hypothyroidism ?E03.9 - Hypothyroidism, unspecified (ICD-10) Hyperlipidemia ?E78.5 - Hyperlipidemia, unspecified (ICD-10) GERD (gastroesophageal reflux disease) ?K21.9 - Gastro-esophageal reflux disease without esophagitis (ICD-10) IBS (irritable bowel syndrome) ?K58.9 - Irritable bowel syndrome without diarrhea (ICD-10) Hypertension ?I10 - Essential (primary) hypertension (ICD-10) CAD (coronary artery disease) ?I25.10 - Atherosclerotic heart disease of [place] coronary artery without angina pectoris (ICD-10) Surgical History (Updated 02/21/25 @ 16:17 by Leigh Ann Boyd MD) Status post total right knee replacement ?Z96.651 - Presence of right artificial knee joint (ICD-10) History of total abdominal hysterectomy and bilateral salpingo-oophorectomy ?Z90.710 - Acquired absence of both cervix and uterus (ICD-10) ?Z90.722 - Acquired absence of ovaries, bilateral (ICD-10) ?Z90.79 - Acquired absence of other genital organ(s) (ICD-10) Status post hip surgery (06/26/23) ?Z98.890 - Other specified postprocedural states (ICD-10) H/O cataract extraction ?Z98.49 - Cataract extraction status, unspecified eye (ICD-10) History of reverse total replacement of right shoulder joint (~2017) ?Z98.890 - Other specified postprocedural states (ICD-10) History of removal of retained hardware (1991) ?Z98.890 - Other specified postprocedural states (ICD-10) History of open reduction and internal fixation (ORIF) procedure (1987) ?Z98.890 - Other specified postprocedural states (ICD-10) History of hysterectomy ?Z90.710 - Acquired absence of both cervix and uterus (ICD-10) Hx of cholecystectomy ?Z90.49 - Acquired absence of other specified parts of digestive tract (ICD-10) Hx of appendectomy ?Z90.49 - Acquired absence of other specified parts of digestive tract (ICD-10) Family History Mother DVT (deep venous thrombosis) Social History (Updated 02/21/25 @ 16:13 by Leigh Ann Boyd MD) Narrative: Denies tobacco use; quit smoking 40 years ago. Denies alcohol use. What is your current living situation?: I presently have a place to live Problems where you live: no known problems In the past 12 months, utilities in danger of being shut off: no In past 12 months, lack of transportation kept you from medical appts, meetings, work, or getting things needed for daily living: no In the past 12 mos, have been you worried that your food would run out before you had money to buy more?: never true In the past 12 mos, the food you bought just didn't last and you didn't have money to buy more?: never true Smoking Status: Former smoker What tobacco products do you use: cigarettes Smoking quit date/years: >15 years ago Do you use any of these nicotine containing products: None Second hand tobacco smoke exposure: No How often do you have a drink containing alcohol: monthly or less How often do you have six or more drinks on one occasion: Never AUDIT-C Alcohol total score: 1 Non-prescribed substance use: denies use Caffeine: Yes How often does anyone, including family, friends and others, physically hurt you: never How often does anyone, including family, friends and others, insult or talk down to you: never How often does anyone, including family, friends and others, threaten you with harm: never How often does anyone, including family, friends and others, scream or curse at you: never service: No Meds Home Medications and Allergies Home Medications ?Medication ?Instructions ?Recorded ?Confirmed ?Type cyclobenzaprine 10 mg tablet 10 mg PO TID PRN 01/30/23 02/21/25 History hydrochlorothiazide 50 mg tablet 50 mg PO DAILY 01/30/23 02/21/25 History omeprazole 20 mg capsule,delayed 20 mg PO QDAY 01/30/23 02/18/25 History release tramadol 50 mg tablet 50 mg PO Q6H PRN 01/30/23 02/21/25 History atorvastatin 40 mg tablet 40 mg PO DAILY 04/14/23 02/18/25 History estradiol 0.01% (0.1 mg/gram) 1 g vaginal MOFR 04/14/23 02/21/25 History vaginal cream losartan 50 mg tablet 50 mg PO BID 04/14/23 02/18/25 History allopurinol 100 mg tablet 50 mg PO DAILY gout 06/18/23 02/21/25 History carvedilol 25 mg tablet 25 mg PO BID 07/30/23 02/18/25 History amlodipine 5 mg tablet 5 mg PO QDAY 10/15/23 02/18/25 History oxycodone 5 mg tablet 5 mg PO Q6H PRN 12/15/23 02/18/25 History latanoprost 0.005 % eye drops 1 drp ophthalmic (eye) HS 02/21/25 02/21/25 History levothyroxine 175 mcg tablet 175 mcg PO QAM 02/21/25 02/21/25 History Allergies Allergy/AdvReac Type Severity Reaction Status Date / Time cinnamon Allergy Unknown Verified 02/21/25 12:00 adhesive Allergy Rash Verified 02/21/25 12:00 house dust Allergy Verified 02/21/25 12:00 Latex, Natural Rubber Allergy Verified 02/21/25 12:00 lisinopril Allergy Cough Verified 02/21/25 12:00 niacin Allergy Verified 02/21/25 12:00 oxycodone Allergy nausea and Verified 02/21/25 12:00 vomiting Penicillins Allergy Hives Verified 02/21/25 12:00 titanium AdvReac infection Verified 02/21/25 12:00 Exam Narrative: Exam Narrative: General: No acute distress. Awake alert oriented x3. HEENT: Normocephalic atraumatic, pupils equally round and reactive to light and accommodation. Oropharynx clear. Mucous membranes are moist. No cervical lymphadenopathy, thyromegaly or carotid bruits. No JVD. Cardiovascular: Regular rate and rhythm. No murmurs, gallops, or rubs. Chest: No increased work of breathing. Clear to auscultation bilaterally. No crackles or wheezes. Abdomen: Bowel sounds present. Soft, nondistended, nontender. No hepatosplenomegaly or masses. Extremities: Right knee bandage is clean, dry, and intact. No edema, no cyanosis or clubbing. Skin: No jaundice, mild pallor, no rashes on visible skin. Const: Vital Signs, click to edit/add: Vital Signs - 24 hr 02/21/25 11:55 02/21/25 12:20 02/21/25 14:50 Temperature 98.3 F Pulse Rate 70 70 67 Respiratory Rate 16 16 14 Blood Pressure 146/70 H 140/82 H 101/60 Pulse Oximetry 98 99 96 Oxygen Delivery Me thod Room Air Nasal Cannula OxyMask Oxygen Flow Rate 2 6 02/21/25 14:55 02/21/25 15:00 02/21/25 15:05 Temperature Pulse Rate 70 67 61 Respiratory Rate 14 16 16 Blood Pressure 106/69 117/73 121/71 Pulse Oximetry 95 94 93 Oxygen Delivery Me thod Face Tent Room Air Room Air Oxygen Flow Rate 6 02/21/25 15:10 02/21/25 15:15 02/21/25 15:25 Temperature 97.4 F L 97.5 F L Pulse Rate 69 67 65 Respiratory Rate 16 16 18 Blood Pressure 120/71 131/84 121/87 Pulse Oximetry 96 95 93 Oxygen Delivery Me thod Room Air Room Air Room Air Oxygen Flow Rate Assessment and Plan Assessment and plan (1) Status post total right knee replacement: Problem comment: - 02/21/2025 Pako - routine post op cares - VTE prophylaxis with bid low dose aspirin Status: Acute (2) Osteoarthritis of right knee: Problem comment: Severe Status: Chronic (3) Chronic kidney disease: Problem comment: stage 3, hypertensive Status: Chronic (4) Hypothyroidism: Problem comment: Continue home dosing of levothyroxine Status: Chronic (5) Hyperlipidemia: Problem comment: Continue atorvastatin Status: Chronic (6) IBS (irritable bowel syndrome): Problem comment: Has been having diarrhea this past week, may need to adjust bowel regimen accordingly, monitor Status: Chronic (7) Hypertension: Problem comment: Will continue carvedilol, but hold amlodipine, hydrochlorothiazide, and losartan tonight and tomorrow morning. If her blood pressures are elevated, these could be restarted, otherwise restart them upon going home. Status: Chronic
[2025-02-21] MEDS: HYDROmorphone 2 MG TABLET PO ×2 (16:20→21:51)
[2025-02-21] MEDS: ATORVASTATIN CALCIUM 40 MG TABLET PO (18:08)
[2025-02-21] MEDS: CEFAZOLIN 2 GM in 0.9 % SODIUM CHLORIDE Mini-bag 100 ML IVPB (18:32)
--- NOTE | 2025-02-21 19:06 | PC.NURSE ---
Pt arrived to the unit @ 1525, accompanied by two daughters. CMS to the R knee remains intact. Dressing remains CDI with active ice applied. A1 GB W to the bathroom, voiding well. LR running @ 75 ml/hr. Pt tolerating regular diet well with no nausea present. Pt reports pain to the R knee that is burning and spastic. Job Service Specialist utilizing PRN and scheduled pain medication, repositioning, and environmental control. Continuing to assess and evaluate pain due to minimal relief reported. Tolerating room air, lung sounds clear, pedal pulses present. Pt appears resting in bed watching television with call light in reach.
[2025-02-21] MEDS: SENNOSIDES 1 TAB TABLET 2 TAB PO (21:51)
[2025-02-21] MEDS: carvediloL 25 MG TABLET PO (21:52)
[2025-02-21] MEDS: LORazepam 0.5 MG TABLET PO (21:52)
[2025-02-21] MEDS: ASPIRIN 81 MG TABLET EC PO (21:53)
[2025-02-21] MEDS: LATANOPROST 0.005% OPHTH 1 DROP EYE-BOTH (21:56)
[2025-02-22] MEDS: ACETAMINOPHEN 500 MG TABLET 1000 MG PO ×3 (00:02→12:22)
[2025-02-22] MEDS: HYDROmorphone 2 MG TABLET PO ×3 (02:12→12:22)
[2025-02-22 02:20] VITALS: BP 145/91; PULSE 74; RESP 16; TEMP 36.7; O2SAT 95
[2025-02-22] MEDS: CEFAZOLIN 2 GM in 0.9 % SODIUM CHLORIDE Mini-bag 100 ML IVPB ×2 (02:51→11:37)
[2025-02-22] MEDS: OMEPRAZOLE 20 MG CAPSULE DR PO (06:19)
[2025-02-22] MEDS: LEVOTHYROXINE 75 MCG TABLET PO (06:19)
[2025-02-22] MEDS: LEVOTHYROXINE 100 MCG TABLET PO (06:19)
[2025-02-22 06:49] LABS: Basophils Percent Auto 0.1 % (0.0-3.0); Hematocrit 32.1 % (33.0-51.0); Hemoglobin* 10.5 gm/dL (12.0-16.0); Immature Granulocytes Pct Auto 0.2 %; Lymphocytes Percent Auto 9.2 % (20-44); Mean Corpuscular HGB Conc 33 gm/dL (32-36); Mean Corpuscular Hemoglobin 31 pg (26-34); Mean Corpuscular Volume 94 fL (80-100); Monocytes Percent Auto 8.3 % (0.0-11.0); Neutrophils Percent Auto 82.2 % (42.0-72.0); Platelet Count* 292 K/uL (140-440); RDW Coefficient of Variation % 12.5 % (11.5-15.5); Red Blood Count 3.41 m/uL (4.00-5.20); White Blood Count* 12.38 K/uL (4.50-11.00)
[2025-02-22 06:53] LABS: Slide Review Reflex No
[2025-02-22 07:00] VITALS: RESP 18; O2SAT 92
[2025-02-22 07:05] LABS: Potassium* 3.2 mmol/L (3.6-5.1); Sodium* 134 mmol/L (135-149)
[2025-02-22 07:08] LABS: Blood Urea Nitrogen* 20 mg/dL (7-30); Est. Creatinine Clearance* 33.29; Estimated Glomerular Filt Rate 57 ml/min
--- NOTE | 2025-02-22 08:06 | PC.NURSE ---
Pt is alert and oriented x3. Afebrile. Pt reports 3-7/10 pain in right knee, pain managed with ice pack, PRN and scheduled medications. Pt's right knee is CDI. Pt is up SBA with walker and gait belt, voiding, and tolerating a regular diet. Pt denies passing gas yet.
[2025-02-22 08:25] VITALS: BP 124/58; PULSE 69; RESP 18; TEMP 36.9; O2SAT 92
[2025-02-22] MEDS: ASPIRIN 81 MG TABLET EC PO (08:32)
[2025-02-22] MEDS: SENNOSIDES 1 TAB TABLET 2 TAB PO (08:34)
[2025-02-22] MEDS: carvediloL 25 MG TABLET PO (08:38)
[2025-02-22] MEDS: allopurinoL 100 MG TABLET 50 MG PO (08:38)
--- NOTE | 2025-02-22 09:04 | PC.SOCIAL ---
Discharge planning: SW met with patient to determine if there are any home needs post surgery. Patient reports no concerns or resources needed. Patient explained that she lives at [facility] and her daughters will be staying with her for two weeks. Patient explains she is active and often visits her who is at [facility]. Patient states she already has home care services set up. SW to assist if concerns arise prior to discharge.
[2025-02-22 09:26] VITALS: O2SAT 92
--- NOTE | 2025-02-22 11:16 | PM.ORPN ---
Subjective Subjective Date Seen: 02/22/25 Principal diagnosis: Status postop day 1 right total knee arthroplasty Interval history: Patient reports doing okay. No acute events over night. Pain managed with scheduled and PRN medications, ice. DVT prophylaxis: 81 mg aspirin by mouth twice daily, SCDs, walking. Denies fevers, chills, aches, N/V, CP, SOB/COOPER, or lightheadedness. States that Dilaudid does not last as long as oxycodone. She states that her reaction to oxycodone in the years past has been nausea and vomiting, but would like to consider this medication instead as well as a prescribed anti nausea medicine. Ortho Exam Narrative Exam Narrative: -Patient appears comfortable; no apparent acute distress -Alert and oriented times 3 -Operative knee mildly swollen; soft tissues supple; no ecchymosis; no erythematous streaking Warmth appropriate -Surgical dressing clean, dry, intact; no drainage -Bilateral calfs soft; no significant swelling, edema, tenderness, erythema, discoloration, warmth, or palpable cords -2+ DP/PT pulses, intact dermatomes and myotomes distally (5/5 strength) Const Vital Signs, click to edit/add: Vital Signs - 24 hr 02/21/25 11:55 02/21/25 12:20 02/21/25 14:50 Temperature 98.3 F Pulse Rate 70 70 67 Pulse Rate [Left Pulse Oximeter] Respiratory Rate 16 16 14 Blood Pressure 146/70 H 140/82 H 101/60 Blood Pressure [Right Arm] Pulse Oximetry 98 99 96 Oxygen Delivery Method Room Air Nasal Cannula OxyMask Oxygen Flow Rate 2 6 02/21/25 14:55 02/21/25 15:00 02/21/25 15:05 Temperature Pulse Rate 70 67 61 Pulse Rate [Left Pulse Oximeter] Respiratory Rate 14 16 16 Blood Pressure 106/69 117/73 121/71 Blood Pressure [Right Arm] Pulse Oximetry 95 94 93 Oxygen Delivery Method Face Tent Room Air Room Air Oxygen Flow Rate 6 02/21/25 15:10 02/21/25 15:15 02/21/25 15:25 Temperature 97.4 F L 97.5 F L Pulse Rate 69 67 65 Pulse Rate [Left Pulse Oximeter] Respiratory Rate 16 16 18 Blood Pressure 120/71 131/84 121/87 Blood Pressure [Right Arm] Pulse Oximetry 96 95 93 Oxygen Delivery Method Room Air Room Air Room Air Oxygen Flow Rate 02/21/25 15:40 02/21/25 15:55 02/21/25 16:10 Temperature 97.4 F L 97.3 F L 97.3 F L Pulse Rate 69 69 73 Pulse Rate [Left Pulse Oximeter] Respiratory Rate 18 18 18 Blood Pressure 119/77 129/84 140/81 H Blood Pressure [Right Arm] Pulse Oximetry 93 94 95 Oxygen Delivery Method Room Air Room Air Room Air Oxygen Flow Rate 02/21/25 16:25 02/21/25 17:00 02/21/25 17:30 Temperature 97.6 F 98.4 F 98.5 F Pulse Rate 72 75 82 Pulse Rate [Left Pulse Oximeter] Respiratory Rate 18 18 18 Blood Pressure 120/89 141/94 H 152/81 H Blood Pressure [Right Arm] Pulse Oximetry 93 93 93 Oxygen Delivery Method Room Air Room Air Room Air Oxygen Flow Rate 02/21/25 18:30 02/21/25 19:22 02/21/25 20:22 Temperature 98.4 F 98.4 F Pulse Rate 81 81 81 Pulse Rate [Left Pulse Oximeter] Respiratory Rate 18 18 18 Blood Pressure 140/83 H 122/89 126/77 Blood Pressure [Right Arm] Pulse Oximetry 94 95 95 Oxygen Delivery Method Room Air Room Air Room Air Oxygen Flow Rate 02/21/25 21:22 02/21/25 22:22 02/21/25 23:50 Temperature 98.4 F 98.4 F Pulse Rate 81 81 Pulse Rate [Left Pulse Oximeter] Respiratory Rate 18 18 Blood Pressure 122/89 131/89 Blood Pressure [Right Arm] Pulse Oximetry 95 95 95 Oxygen Delivery Method Room Air Room Air Oxygen Flow Rate 6 02/21/25 23:50 02/21/25 23:50 02/22/25 02:20 Temperature 98.2 F 98.0 F Pulse Rate 84 74 Pulse Rate [Left Pulse Oximeter] Respiratory Rate 16 16 16 Blood Pressure 129/71 145/91 H Blood Pressure [Right Arm] Pulse Oximetry 93 93 95 Oxygen Delivery Method Room Air Room Air Room Air Oxygen Flow Rate 02/22/25 07:00 02/22/25 08:25 02/22/25 08:25 Temperature 98.4 F Pulse Rate Pulse Rate [Left Pulse Oximeter] 69 69 Respiratory Rate 18 18 18 Blood Pressure Blood Pressure [Right Arm] 124/58 L Pulse Oximetry 92 92 Oxygen Delivery Method Room Air Room Air Oxygen Flow Rate 02/22/25 09:26 Temperature Pulse Rate Pulse Rate [Left Pulse Oximeter] Respiratory Rate Blood Pressure Blood Pressure [Right Arm] Pulse Oximetry 92 Oxygen Delivery Method Oxygen Flow Rate Assessment and Plan Assessment and plan (1) Status post total right knee replacement: Problem details: - 02/21/2025 [facility] - routine post op cares - VTE prophylaxis with bid low dose aspirin Status: Acute (2) Osteoarthritis of right knee: Problem details: Severe Status: Chronic (3) Chronic kidney disease: Problem details: stage 3, hypertensive Status: Chronic (4) Hypothyroidism: Problem details: Continue home dosing of levothyroxine Status: Chronic (5) Hyperlipidemia: Problem details: Continue atorvastatin Status: Chronic (6) IBS (irritable bowel syndrome): Problem details: Has been having diarrhea this past week, may need to adjust bowel regimen accordingly, monitor Status: Chronic (7) Hypertension: Problem details: Will continue carvedilol, but hold amlodipine, hydrochlorothiazide, and losartan tonight and tomorrow morning. If her blood pressures are elevated, these could be restarted, otherwise restart them upon going home. Status: Chronic Plan - Complete 23 hour perioperative antibiotics. - PT/OT consult for education and assistance. - Social work consult for discharge planning - Prescribed analgesics as needed - I am in favor of keeping oral Dilaudid for discharge, instead of prescribing oxycodone and also prescribing antinausea medicine to treat the nausea and vomiting side effect of oxycodone. This information was relayed to the patient. Per her chart and POST MANAGER review, she has not been prescribed oxycodone since 12/15/2023, but recently prescribed tramadol on 12/07/2024. She should not take additional trauma on top Dilaudid. - DVT prophylaxis: 81 mg aspirin by mouth twice daily, walking, and SCDs - Senna for constipation that is commonly induced by oral narcotics; however, because of patient's recent diarrhea due to IBS, she should exercise caution with stool softener. - Anticipation is for discharge to home with family/friends today 02/22/2025, to [facility], if the patient remains medically stable, pain is controlled, and they are safe with mobilization.
--- NOTE | 2025-02-22 14:21 | PC.NURSE ---
Discharge: Patient pleasant and cooperative, A&O. VSS, afebrile. SpO2 maintained above 90% on RA. Patient reports pain on her right knee, managed with PRN medication, see NOV. IV removed with tip intact. Tolerating regular diet. Discharge instructions provided, all questions answered. D/C to home at 1250
== END 2025-02-22 12:50 | disposition home or self-care (01) ==
LOC: OR 11:07 → MEDSURG 11:08
PROVIDERS: PCP Student in an Organized Health Care Education/Training Program; Visit Provider Orthopaedic Surgery Sports Medicine
PROC: (CPT 27447; principal; 2025-02-21 12:15)
DX: M17.11 Unilateral primary osteoarthritis, right knee (principal); G89.18 Other acute postprocedural pain; I12.9 Hypertensive chronic kidney disease with stage 1 through stage 4 chronic kidney disease, or unspecified chronic kidney disease; N18.30 Chronic kidney disease, stage 3 unspecified; E66.01 Morbid (severe) obesity due to excess calories; Z68.37 Body mass index [BMI] 37.0-37.9, adult; J45.909 Unspecified asthma, uncomplicated; K21.9 Gastro-esophageal reflux disease without esophagitis; Z79.82 Long term (current) use of aspirin; I25.10 Atherosclerotic heart disease of native coronary artery without angina pectoris; K58.2 Mixed irritable bowel syndrome; E78.5 Hyperlipidemia, unspecified; E03.9 Hypothyroidism, unspecified
CPT/HCPCS: 27447; 01402; 36415; 64447; 64454; 73560; 76942; 82565; 84132; 84295; 84520; 85025; 97110; 97116; 97161; 97165; 97530; 97535; 99100; A9270; C1776; J0665; J0690; J1100; J1171; J2250; J2405; J2704; J3010; J7120